=== PATIENT | female | born 1945 | race African-American/Black ===

== ENCOUNTER 2021-10-15 05:44 | Observation (INO) | payer MEDICARE, OTHER ==
[2021-10-15] MEDS ORDERED: Tranexamic Acid 1,000 MG/10 ML VIAL ONE (06:00)
[2021-10-15 06:46] LABS: Hemoglobin 13.6 g/dL (12.0-16.0); Mean Corpuscular HGB CONC 30.5 g/dL (32.0-36.0); Mean Corpuscular Hemoglobin 21.4 pg (27.0-31.0); Mean Corpuscular Volume 70.2 fL (78.0-98.0); Mean Platelet Volume 11.3 fL (7.4-10.4); Platelet Count 322 thou/uL (130-400); RBC Distribution Width 18.2 % (11.5-14.5); Red Blood Cell (RBC) Count 6.37 mill/uL (4.20-5.40)
[2021-10-15 06:58] LABS: ALT (SGPT) Less than 7 U/L (8-55); AST (SGOT) 12 U/L (5-34); Albumin 3.8 g/dL (3.4-4.8); Alkaline Phosphatase 62 U/L (40-110); Anion Gap 13 mmol/L (10-20); BUN (Urea Nitrogen) 16 mg/dL (9.8-20.1); Bilirubin, Total 0.4 mg/dL (0.2-1.2); Calc. Creatinine Clearance 0 mL/min (70-130); Calcium 8.9 mg/dL (7.8-10.44); Carbon Dioxide 29 mmol/L (23-31); Chloride 101 mmol/L (98-107); Glucose 184 mg/dL (83-110); Potassium 3.6 mmol/L (3.5-5.1); Protein, Total 6.8 g/dL (5.8-8.1); Sodium 139 mmol/L (136-145)
[2021-10-15 07:00] LABS: #Eosinphils 0.1 thou/uL (0.0-0.7); #Lymphocytes 2.8 thou/uL (1.20-3.40); #Monocytes 0.6 thou/uL (0.11-0.59); #Neutrophils 5.4 thou/uL (1.40-6.50); %Basophils 0.3 % (0.0-1.0); %Eosinophils 1.6 % (0.0-10.0); %Lymphocytes 31.6 % (21.0-51.0); %Monocytes 6.3 % (0.0-10.0); %Neutrophils 60.3 % (42.0-75.0); Anisocytosis SLIGHT = 6-15 cells (100X) (0-5/hpf); Elliptocytes SLIGHT = 2-5 cells (100X) (0-1/hpf); Hypochromia SLIGHT = 6-15 cells (100X) (0-5/hpf); MDiff Complete? YES; Microcytosis SLIGHT = 6-15 cells (100X) (0-5/hpf)
[2021-10-15] MEDS ORDERED: Famotidine/PF 20 mg/2ml Vial ONE (08:01)
[2021-10-15] MEDS ORDERED: methylPREDNISolone Sod Succ/PF 125 MG/2 ML VIAL ONE (08:01)
[2021-10-15] MEDS ORDERED: Ondansetron ODT 4 MG TAB PO PRN (08:25)
[2021-10-15] MEDS ORDERED: EPINEPHrine 1 MG/ML AMP IM PRN (08:32)
[2021-10-15] MEDS ORDERED: Cetirizine HCl 10 MG TAB PO SCH (09:00)
[2021-10-15 11:26] VITALS: BMI 41.5
[2021-10-15] MEDS: predniSONE 20 MG TAB PO SCH ×2 (13:13→20:13)
[2021-10-15] MEDS: Famotidine 20 MG TAB PO SCH ×2 (13:14→20:13)
[2021-10-15] MEDS: Acetaminophen 325 MG TAB PO PRN (15:50)
[2021-10-15] MEDS ORDERED: Ketorolac Tromethamine 30 MG/ML VIAL IVP PRN (19:42)
[2021-10-15 20:07] LABS: SARS-CoV-2 PCR by NAA Not Detected (NotDetected)
[2021-10-15] MEDS: Metoprolol Tartrate 50 MG TAB PO SCH (20:12)
[2021-10-15] MEDS: Loratadine 10 MG TAB PO SCH (20:12)
[2021-10-16] MEDS: Acetaminophen 325 MG TAB PO PRN (04:22)
[2021-10-16 05:28] LABS: #Lymphocytes 1.1 thou/uL (1.20-3.40); #Monocytes 0.5 thou/uL (0.11-0.59); #Neutrophils 8.6 thou/uL (1.40-6.50); %Basophils 0.1 % (0.0-1.0); %Eosinophils 0.2 % (0.0-10.0); %Lymphocytes 10.4 % (21.0-51.0); %Monocytes 4.6 % (0.0-10.0); %Neutrophils 84.8 % (42.0-75.0); Hemoglobin 12.4 g/dL (12.0-16.0); Mean Corpuscular HGB CONC 29.4 g/dL (32.0-36.0); Mean Corpuscular Hemoglobin 20.8 pg (27.0-31.0); Mean Corpuscular Volume 70.9 fL (78.0-98.0); Mean Platelet Volume 6.7 fL (7.4-10.4); Platelet Count 289 thou/uL (130-400); RBC Distribution Width 18.2 % (11.5-14.5); Red Blood Cell (RBC) Count 5.95 mill/uL (4.20-5.40); White Blood Cell (WBC) Count 10.1 thou/uL (4.8-10.8)
[2021-10-16 05:38] LABS: Anion Gap 12 mmol/L (10-20); BUN (Urea Nitrogen) 14 mg/dL (9.8-20.1); Calc. Creatinine Clearance 104 mL/min (70-130); Calcium 9.1 mg/dL (7.8-10.44); Carbon Dioxide 29 mmol/L (23-31); Chloride 101 mmol/L (98-107); Glucose 152 mg/dL (83-110); Potassium 4.2 mmol/L (3.5-5.1); Sodium 138 mmol/L (136-145)
[2021-10-16 08:35] VITALS: BP 141/69; TEMP 97.6
[2021-10-16] MEDS: Metoprolol Tartrate 50 MG TAB PO SCH (08:47)
[2021-10-16] MEDS: predniSONE 20 MG TAB PO SCH (08:47)
[2021-10-16] MEDS: Loratadine 10 MG TAB PO SCH (08:47)
[2021-10-16] MEDS: Famotidine 20 MG TAB PO SCH (08:47)
== END 2021-10-16 11:30 | disposition home or self-care (01) ==
LOC: ERS 05:44 → 2SW 08:06
PROVIDERS: ADMIT Internal Medicine; ATTEND Internal Medicine
DX: J02.9 Acute pharyngitis, unspecified (principal); I10 Essential (primary) hypertension; E03.9 Hypothyroidism, unspecified; E78.5 Hyperlipidemia, unspecified; E11.9 Type 2 diabetes mellitus without complications; Z79.82 Long term (current) use of aspirin; Z79.84 Long term (current) use of oral hypoglycemic drugs; Z79.899 Other long term (current) drug therapy; Z88.0 Allergy status to penicillin; Z88.5 Allergy status to narcotic agent; Z91.038 Other insect allergy status; Z20.822 Contact with and (suspected) exposure to COVID-19
CPT/HCPCS: 80048; 80053; 85025 ×2; 96365; 96375 ×2; 99285; G0378 ×3; U0003; U0005; 36415; J1885; J2930; J7512; S0028